=== PATIENT | male | born 1955 | race African-American/Black ===

== ENCOUNTER → 2018-03-04 | Outpatient (CLI) | payer BC, OTHER ==
--- NOTE | 2018-03-04 13:10 | XR ---
EXAM TYPE: LUMBAR SPINE X RAY SERIES COMPARISON: NONE HISTORY: Low back pain TECHNIQUE: 4 views are submitted. FINDINGS: Alignment is anatomic. The pedicles are intact. The transverse processes are intact. There is no s pondylolysis or spondylolisthesis. Diffuse osteopenia and hypertrophic and degenerative change of th e spine with the most marked findings at L4-5 and L5-S1. Facet arthropathy noted. Sclerotic density o verlying the iliac bone may represent a bone island. There is diffuse osteopenia. IMPRESSION: 1. Multilevel degenerative disc disease with most marked findings at L4-L5 and L5-S1 with facet arthr opathy.
== END | disposition home or self-care (01) ==
LOC: RADXRMAIN 12:21
PROVIDERS: ATTEND Internal Medicine
DX: M51.36 Other intervertebral disc degeneration, lumbar region (principal); M46.96 Unspecified inflammatory spondylopathy, lumbar region
CPT/HCPCS: 72110

== ENCOUNTER → 2018-03-20 | Outpatient (CLI) | payer BC ==
--- NOTE | 2018-03-20 09:24 | MR ---
EXAMINATION TYPE: MR knee LT wo con DATE OF EXAM: 03/20/2018 COMPARISON: Plain film 02/27/2018 from outside institution. HISTORY: Pain in left knee TECHNIQUE: Multiplanar, multisequence imaging of the left knee is performed without IV contrast. FINDINGS: MEDIAL MENISCUS: Posterior horn the medial meniscus shows some linear increased signal that extends t o the articular surface seen on sagittal image 23. Anterior horn intact. LATERAL MENISCUS: There is some increased signal in the posterior horn of the lateral meniscus withou t clear communication with the articular surface. CRUCIATE LIGAMENTS: The anterior and posterior cruciate ligaments are intact and unremarkable. COLLATERAL LIGAMENTS: The medial collateral ligament and lateral collateral ligament complex are inta ct and unremarkable. EXTENSOR MECHANISM: Visualized quadriceps and patellar tendons are intact. EFFUSION: No significant suprapatellar joint effusion. POPLITEAL CYST: No popliteal/de jesus cyst. TRICOMPARTMENT SPACES: Loss of joint space present in the medial compartment CARTILAGE: Grade 3 to grade IV chondromalacia present at the posterior patella, medial femoral condyl e BONE MARROW SIGNAL: Some reactive marrow edema suspected in the medial femoral condyle. OTHER: No additional significant abnormality is appreciated. IMPRESSION: Osteoarthritis. Findings compatible with tear of the posterior horn of the medial meniscus.
== END | disposition home or self-care (01) ==
LOC: RADMRIMAIN 08:05
PROVIDERS: ATTEND Orthopaedic Surgery
DX: M17.12 Unilateral primary osteoarthritis, left knee (principal)

== ENCOUNTER 2019-01-07 08:09 | Day surgery (SDC) | payer BC ==
[2019-01-06 11:05] VITALS: BMI 31.3
[~2019-01-07 08:09] MED LIST: DEXAMETHASONE SOD PHOSPHATE 10 MG/ML 1 ML VIAL IV ONE; HEPARIN SODIUM,PORCINE 5,000 UNIT/ML 1 ML VIAL SQ ONE; LACTATED RINGERS 1,000 ML IV SCH; LIDOCAINE 1% 20 ML VIAL (10MG/ML) FOR IV START INTRADERMA PRN; ONDANSETRON 4 MG/2 ML VIAL IVP PRN; SCOPOLAMINE 1.5MG/72HR PATCH TRANSDERM ONE; ceFAZolin IN SWFI 2 GM/20 ML SYRINGE IVP ONE
[2019-01-07 09:17] LABS: Basophils % (A) 1 %; Eosinophils # (A) 0.1 k/uL (0-0.7); Eosinophils % (A) 3 %; HCT 47.6 % (39.0-53.0); HGB 15.5 gm/dL (13.0-17.5); Lymphocytes # (A) 1.3 k/uL (1.0-4.8); Lymphocytes % (A) 30 %; MCH 29.5 pg (25.0-35.0); MCHC 32.6 g/dL (31.0-37.0); MCV 90.4 fL (80.0-100.0); Mean Platelet Volume 8.4; Monocytes # (A) 0.3 k/uL (0-1.0); Monocytes % (A) 7 %; Neutrophils # (A) 2.5 k/uL (1.3-7.7); Neutrophils % (A) 57 %; Platelet Count 234 k/uL (150-450); RBC 5.26 m/uL (4.30-5.90); RDW 14.2 % (11.5-15.5); WBC 4.3 k/uL (3.8-10.6)
[2019-01-07] MEDS ORDERED: BUPIVACAIN-EPI 0.5%-1:200,000 30 ML VIAL SQ ONE ×4 (09:53→11:13)
[2019-01-07] MEDS ORDERED: MIDAZOLAM 2 MG/2 ML VIAL ONE (10:40)
[2019-01-07] MEDS ORDERED: KETOROLAC 30 MG/ML 1 ML VIAL ONE (10:40)
[2019-01-07] MEDS ORDERED: PROPOFOL 10 MG/ML 20 ML VIAL IV ONE (10:40)
[2019-01-07] MEDS ORDERED: ROCURONIUM BROMIDE 10 MG/ML 10 ML VIAL IV ONE (10:40)
[2019-01-07] MEDS ORDERED: GLYCOPYRROLATE 0.2 MG/ML 2 ML VIAL ONE (10:40)
[2019-01-07] MEDS ORDERED: fentaNYL (PF) 50 MCG/ML 2 ML AMP ONE (10:40)
[2019-01-07] MEDS ORDERED: SUCCINYLCHOLINE CHLORIDE 100 MG/5 ML SYR IV ONE (10:40)
[2019-01-07] MEDS ORDERED: NEOSTIGMINE 1 MG/ML 10 ML VIAL ONE (10:40)
[2019-01-07] MEDS ORDERED: LIDOCAINE 1% INJ 10MG/ML (20 ML MDV) ONE (10:40)
[2019-01-07] MEDS ORDERED: HYDROcodone/APAP 5-325MG 1 EACH TAB PO PRN (12:18)
[2019-01-07] MEDS ORDERED: NALOXONE 0.4 MG/ML 1 ML VIAL IV PRN (12:18)
[2019-01-07 12:26] VITALS: TEMP 97.9
--- NOTE | 2019-01-07 12:32 | P.OP ---
Date of Procedure: 01/07/19 Procedure(s) Performed: PREOPERATIVE DIAGNOSIS: Left inguinal hernia POSTOPERATIVE DIAGNOSIS: Same PROCEDURE: Laparoscopic repair left inguinal hernia with the da Liliane robot assistance with mesh SURGEON: Roberto EBL: Minimal ANESTHESIA: General COMPLICATIONS: None OPERATIVE PROCEDURE: Patient was placed in the operating table in the supine position. The patient was placed under general anesthesia. The abdomen was prepped and draped in usual sterile fashion. A small curvilinear supraumbilical incision was made. The fascia was retracted anteriorly with Nitin forceps. The Veress needle was inserted. The saline drop test was normal. Insufflation took place to 15 mmHg. A 5 mm trocar was placed into the peritoneal cavity. This was later switched to a 12 mm trocar. 2 additional 8 mm trochars were placed in the right upper quadrant and left upper quadrant under visualization. The robotic arms were then brought in and docked into place. The fenestrated bipolar was used in the left arm and the laparoscopic padmini was utilized in the right arm. A 30 12 mm scope was used in the up position. The peritoneal cavity was inspected. Patient had evidence of a previous right inguinal hernia repair. I could see a Ethibond stitch beneath the peritoneum on the right hand side with no evidence of hernia recurrence. On the left side the patient had a moderate sized indirect inguinal hernia containing the sigmoid colon. The sigmoid colon thankfully was not adherent to the peritoneum or hernia sac and was able to be reduced back into the peritoneal cavity without difficulty. The peritoneum was incised in a horizontal fashion cephalad to the internal inguinal ring. Following that careful dissection of the preperitoneal space took place. This took place using both electrocautery, sharp dissection but primarily blunt dissection. Visualization of the pubic tubercle and Bradley's ligament took place medially. Full dissection took place laterally as well. The hernia sac was fully dissected. Once we had adequate space the 15 x 10 progrip mesh was advanced into the preperitoneal space and flattened out appropriately to cover all potential hernia sites. No sutures were used. The peritoneal defect was then closed using a locking 2-0 VLok suture. The pneumoperitoneum was then ev acuated. The fascia at the 12 mm site was closed using the Kavon Mahan technique and an 0 Vicryl stitch. The skin of all 3 sites was closed using a 4- 0 Monocryl stitch. Skin glue was then applied. DISPOSITION: Stable to recovery room
[2019-01-07] MEDS: HYDROmorphone 0.5 MG/0.5 ML SYRINGE IVP PRN ×2 (13:14→13:28)
[2019-01-07 14:39] VITALS: BP 106/69; PULSE 84; RESP 18
== END 2019-01-07 15:34 | disposition home or self-care (01) ==
LOC: OR 08:09
PROVIDERS: ATTEND Surgery
DX: K40.30 Unilateral inguinal hernia, with obstruction, without gangrene, not specified as recurrent (principal); K21.9 Gastro-esophageal reflux disease without esophagitis; M54.9 Dorsalgia, unspecified; Z79.1 Long term (current) use of non-steroidal anti-inflammatories (NSAID); Z79.899 Other long term (current) drug therapy
CPT/HCPCS: 49650; 85025; S2900

== ENCOUNTER → 2019-02-17 | Outpatient (CLI) | payer BC ==
--- NOTE | 2019-02-17 10:43 | US ---
EXAMINATION TYPE: US venous doppler duplex LE LT DATE OF EXAM: 02/17/2019 10:35 AM COMPARISON: NONE CLINICAL HISTORY: M79.662 PAIN IN LT LOWER LIMB. Pain and swelling. SIDE PERFORMED: Left TECHNIQUE: The lower extremity deep venous system is examined utilizing real time linear array sonog ronel with graded compression, doppler sonography and color-flow sonography. VESSELS IMAGED: External Iliac Vein (EIV) Common Femoral Vein Deep Femoral Vein Greater Saphenous Vein * Femoral Vein Popliteal Vein Small Saphenous Vein * Proximal Calf Veins (* superficial vessels) Preliminary results given to Alessandra immediately following exam. Left Leg: Negative for DVT Grayscale, color doppler, spectral doppler imaging performed of the deep veins of the left lower extr emity. There is normal flow, compressibility, vascular waveforms. IMPRESSION: No ultrasound evidence for acute DVT in the left lower extremity.
== END | disposition home or self-care (01) ==
LOC: RADUSWWP 10:10
PROVIDERS: ATTEND Internal Medicine
DX: M79.662 Pain in left lower leg (principal)

== ENCOUNTER 2020-01-22 17:56 | Observation (INO) | payer OTHER, BC ==
[2020-01-22] MEDS ORDERED: SODIUM CHLORIDE 0.9% 500 ML 500 ML IV STA (18:09)
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
[2020-01-22 18:26] LABS: Basophils % (A) 1 %; Eosinophils # (A) 0.1 k/uL (0-0.7); Eosinophils % (A) 3 %; HCT 38.6 % (39.0-53.0); HGB 7.9 gm/dL (13.0-17.5); Hypochromasia Marked; Lymphocytes # (A) 0.8 k/uL (1.0-4.8); Lymphocytes % (A) 22 %; MCH 16.8 pg (25.0-35.0); MCHC 20.5 g/dL (31.0-37.0); MCV 81.8 fL (80.0-100.0); Monocytes # (A) 0.2 k/uL (0-1.0); Monocytes % (A) 5 %; Neutrophils # (A) 2.5 k/uL (1.3-7.7); Neutrophils % (A) 67 %; Platelet Count 421 k/uL (150-450); RBC 4.72 m/uL (4.30-5.90); RDW 15.1 % (11.5-15.5); WBC 3.8 k/uL (3.8-10.6)
[2020-01-22 18:34] LABS: Partial Thromboplastin Time 23.3 sec (22.0-30.0); Prothrombin Time 10.1 sec (9.0-12.0)
[2020-01-22 18:41] LABS: ALT 20 U/L (4-49); AST 27 U/L (17-59); African American GFR (CKD) >90 (>60 ml/min/1.73 sqM); Albumin 4.4 g/dL (3.5-5.0); Alkaline Phosphatase 79 U/L (38-126); Anion Gap 12 mmol/L; Blood Urea Nitrogen 14 mg/dL (9-20); Calcium 9.7 mg/dL (8.4-10.2); Carbon Dioxide 24 mmol/L (22-30); Chloride 101 mmol/L (98-107); Glucose 121 mg/dL (74-99); Magnesium 1.9 mg/dL (1.6-2.3); Non-African American GFR(CKD) >90 (>60 ml/min/1.73 sqM); Potassium 4.2 mmol/L (3.5-5.1); Sodium 137 mmol/L (137-145); Total Bilirubin 0.2 mg/dL (0.2-1.3); Total Protein 8.1 g/dL (6.3-8.2)
--- NOTE | 2020-01-22 18:56 | XR ---
EXAMINATION TYPE: XR chest 1V portable DATE OF EXAM: 01/22/2020 COMPARISON: 02/14/2015 HISTORY: Syncope TECHNIQUE: Single frontal view of the chest is obtained. FINDINGS: Lingular linear scarring and/or atelectasis is seen. There is no focal air space opacity, pleural effusion, or pneumothorax seen. The cardiac silhouette size is within normal limits. Degener ative changes of the spine are partially visualized. IMPRESSION: Lingular scarring and/or atelectasis. Otherwise no acute cardiopulmonary process.
[2020-01-22] MEDS ORDERED: NALOXONE 0.4 MG/ML 1 ML VIAL IV PRN (22:20)
[2020-01-22] MEDS: SODIUM CHLORIDE 0.9% 1,000 ML IV SCH (23:52)
[2020-01-23] MEDS ORDERED: PROCHLORPERAZINE 5 MG TAB PO PRN (00:57)
[2020-01-23] MEDS ORDERED: oxyCODONE-APAP 10-325MG 1 EACH TAB PO PRN (00:57)
[2020-01-23] MEDS ORDERED: MECLIZINE 25 MG TAB PO PRN (00:57)
[2020-01-23 06:05] LABS: Basophils % (A) 0 %; Eosinophils # (A) 0.1 k/uL (0-0.7); Eosinophils % (A) 3 %; HCT 35.6 % (39.0-53.0); HGB 10.5 gm/dL (13.0-17.5); Hypochromasia Marked; Lymphocytes # (A) 1.1 k/uL (1.0-4.8); Lymphocytes % (A) 27 %; MCH 24.2 pg (25.0-35.0); MCHC 29.6 g/dL (31.0-37.0); MCV 81.8 fL (80.0-100.0); Monocytes # (A) 0.3 k/uL (0-1.0); Monocytes % (A) 8 %; Neutrophils # (A) 2.3 k/uL (1.3-7.7); Neutrophils % (A) 59 %; Platelet Count 411 k/uL (150-450); RBC 4.35 m/uL (4.30-5.90); RDW 15.2 % (11.5-15.5)
[2020-01-23] MEDS: PANTOPRAZOLE 40 MG TABLET PO SCH (07:23)
[2020-01-23] MEDS: ASCORBIC ACID 500 MG TAB PO SCH (07:23)
[2020-01-23] MEDS: DOCUSATE 100 MG CAP PO SCH ×2 (07:23→23:28)
[2020-01-23] MEDS: FUROSEMIDE 20 MG TAB PO SCH (07:23)
[2020-01-23] MEDS: POTASSIUM CHLORIDE ER 20 MEQ TAB.ER PO SCH (07:23)
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
[2020-01-23] MEDS: SODIUM CHLORIDE 0.9% 1,000 ML IV SCH ×2 (12:44→23:28)
--- NOTE | 2020-01-23 12:52 | US ---
EXAMINATION TYPE: US carotid duplex BILAT DATE OF EXAM: 01/23/2020 COMPARISON: NONE CLINICAL HISTORY: pre syncope. Difficult exam as patient is in a neck brace and cannot turn his head to the side EXAM MEASUREMENTS: RIGHT: Peak Systolic Velocity (PSV) cm/sec ----- Right CCA: 88.1 ----- Right ICA: 73.5 ----- Right ECA: 76.4 ICA/CCA ratio: 0.8 RIGHT: End Diastole cm/sec ----- Right CCA: 21.2 ----- Right ICA: 29.9 ----- Right ECA: 22.7 LEFT: Peak Systolic Velocity (PSV) cm/sec ----- Left CCA: 73.5 ----- Left ICA: 77.5 ----- Left ECA: 76.2 ICA/CCA ratio: 1.1 LEFT: End Diastole cm/sec ----- Left CCA: 24.1 ----- Left ICA: 29.6 ----- Left ECA: 12.8 VERTEBRALS (direction of flow): Right Vertebral: Antegrade Left Vertebral: Antegrade Rhythm: Normal Grayscale, color Doppler, spectral Doppler imaging performed of the carotid arteries. Waveform analys is does not show significant stenosis of the internal carotid arteries. Minimal plaque visualized, no elevated velocities, no significant stenosis IMPRESSION: No hemodynamic significant stenosis of the proximal internal carotid arteries by Doppler criteria, an indirect measurement of carotid stenosis.
[2020-01-23 17:25] LABS: % Iron Saturation 4.62 (15.00-50.00)
[2020-01-23 17:30] LABS: Folate, Serum 9.4 ng/mL
[2020-01-23 17:59] LABS: Basophils % (A) 1 %; Eosinophils # (A) 0.1 k/uL (0-0.7); Eosinophils % (A) 3 %; HCT 37.8 % (39.0-53.0); HGB 11.3 gm/dL (13.0-17.5); Hypochromasia Marked; Lymphocytes # (A) 1.1 k/uL (1.0-4.8); Lymphocytes % (A) 30 %; MCH 24.8 pg (25.0-35.0); MCHC 29.9 g/dL (31.0-37.0); Mean Platelet Volume 8.2; Monocytes # (A) 0.3 k/uL (0-1.0); Monocytes % (A) 7 %; Neutrophils % (A) 55 %; Platelet Count 414 k/uL (150-450); RBC 4.55 m/uL (4.30-5.90); RDW 15.3 % (11.5-15.5); WBC 3.7 k/uL (3.8-10.6)
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
[2020-01-24 08:03] VITALS: BP 125/68; PULSE 77; RESP 16; TEMP 97.7
[2020-01-24] MEDS: PANTOPRAZOLE 40 MG TABLET PO SCH (08:04)
[2020-01-24] MEDS: ASCORBIC ACID 500 MG TAB PO SCH (08:04)
[2020-01-24] MEDS: POTASSIUM CHLORIDE ER 20 MEQ TAB.ER PO SCH (08:04)
[2020-01-24] MEDS: DOCUSATE 100 MG CAP PO SCH (08:04)
[2020-01-24] MEDS: FUROSEMIDE 20 MG TAB PO SCH (08:04)
[2020-01-24 08:34] LABS: Basophils % (A) 1 %; Eosinophils # (A) 0.2 k/uL (0-0.7); Eosinophils % (A) 5 %; HCT 35.8 % (39.0-53.0); Hypochromasia Marked; Lymphocytes # (A) 1.1 k/uL (1.0-4.8); Lymphocytes % (A) 33 %; MCH 25.8 pg (25.0-35.0); MCHC 30.7 g/dL (31.0-37.0); MCV 84.3 fL (80.0-100.0); Mean Platelet Volume 8.5; Monocytes # (A) 0.3 k/uL (0-1.0); Monocytes % (A) 9 %; Neutrophils # (A) 1.6 k/uL (1.3-7.7); Neutrophils % (A) 49 %; Platelet Count 370 k/uL (150-450); RBC 4.24 m/uL (4.30-5.90); WBC 3.3 k/uL (3.8-10.6)
[2020-01-24 08:46] LABS: ALT 19 U/L (4-49); AST 22 U/L (17-59); African American GFR (CKD) >90 (>60 ml/min/1.73 sqM); Albumin 3.4 g/dL (3.5-5.0); Alkaline Phosphatase 61 U/L (38-126); Anion Gap 7 mmol/L; Blood Urea Nitrogen 9 mg/dL (9-20); Calcium 9.1 mg/dL (8.4-10.2); Carbon Dioxide 27 mmol/L (22-30); Chloride 105 mmol/L (98-107); Glucose 93 mg/dL (74-99); Non-African American GFR(CKD) >90 (>60 ml/min/1.73 sqM); Potassium 4.5 mmol/L (3.5-5.1); Sodium 139 mmol/L (137-145); Total Bilirubin 0.4 mg/dL (0.2-1.3)
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
--- NOTE | 2020-01-24 14:00 | ECHOF ---
Referral Reason:pre syncope MEASUREMENTS -------- HEIGHT: 175.3 cm WEIGHT: 81.6 kg BP: 124/74 IVSd: 1.3 cm (0.6 - 1.1) LVIDd: 4.0 cm (3.9 - 5.3) LVPWd: 1.3 cm (0.6 - 1.1) IVSs: 1.8 cm LVIDs: 2.4 cm LVPWs: 1.7 cm RVIDd: 4.4 cm (< 3.3) LAESV Index (A-L): 19.35 ml/m Ao Diam: 3.5 cm (2.0 - 3.7) AV Cusp: 1.9 cm (1.5 - 2.6) EPSS: 0.6 cm MV E Benoit: 0.57 m/s MV DecT: 227 ms MV A Benoit: 0.70 m/s MV E/A Ratio: 0.82 AR PHT: 856 ms RAP: 5.00 mmHg RVSP: 22.12 mmHg MV EF SLOPE: 92.59 mm/s (70 - 150) MV EXCURSION: 24.30 mm (> 18.000) FINDINGS -------- Sinus rhythm. This was a technically adequate study. The left ventricular size is normal. There is mild concentric left ventricular hypertrophy. Overa ll left ventricular systolic function is normal with, an EF between 55 - 60 %. The diastolic fillin g pattern is normal for the age of the patient 7.90. The right ventricle is moderately enlarged. Normal LA size by volume 22+/-6 ml/m2. The right atrial size is normal. Interatrial and interventricular septum intact. The aortic valve is trileaflet and appears structurally normal. There is mild aortic valve sclerosi s. Trace amount of aortic regurgitation. There is no evidence of aortic stenosis. There is trace mitral regurgitation. Mild tricuspid regurgitation present. There is no evidence of pulmonary hypertension. The right v entricular systolic pressure, as measured by Doppler, is 22.12mmHg. There is no pulmonic regurgitation present. The aortic root size is normal. Normal inferior vena cava with normal inspiratory collapse consistent with estimated right atrial pre ssure of 5 mmHg. There is no pericardial effusion. CONCLUSIONS -------- 1. Sinus rhythm. 2. This was a technically adequate study. 3. The left ventricular size is normal. 4. There is mild concentric left ventricular hypertrophy. 5. Overall left ventricular systolic function is normal with, an EF between 55 - 60 %. 6. The diastolic filling pattern is normal for the age of the patient 7.90 7. The right ventricle is moderately enlarged. 8. Normal LA size by volume 22+/-6 ml/m2. 9. The right atrial size is normal. 10. Interatrial and interventricular septum intact. 11. The aortic valve is trileaflet and appears structurally normal. 12. There is mild aortic valve sclerosis. 13. Trace amount of aortic regurgitation. 14. There is no evidence of aortic stenosis. 15. There is trace mitral regurgitation. 16. Mild tricuspid regurgitation present. 17. There is no evidence of pulmonary hypertension. 18. The right ventricular systolic pressure, as measured by Doppler, is 22.12mmHg. 19. There is no pulmonic regurgitation present. 20. The aortic root size is normal. 21. Normal inferior vena cava with normal inspiratory collapse consistent with estimated right atrial pressure of 5 mmHg. 22. There is no pericardial effusion. CONCERT MANAGER: Ofe Ceron RDCS
== END 2020-01-24 14:08 | disposition home or self-care (01) ==
LOC: EC 17:56 → 4SSUR 20:14
PROVIDERS: ADMIT Internal Medicine; ATTEND Internal Medicine
DX: R55 Syncope and collapse (principal); R42 Dizziness and giddiness; R61 Generalized hyperhidrosis; Z86.19 Personal history of other infectious and parasitic diseases; D64.9 Anemia, unspecified; Z79.891 Long term (current) use of opiate analgesic; Z79.899 Other long term (current) drug therapy; Z80.1 Family history of malignant neoplasm of trachea, bronchus and lung; S12.9XXD Fracture of neck, unspecified, subsequent encounter; S32.009D Unspecified fracture of unspecified lumbar vertebra, subsequent encounter for fracture with routine healing; V48.0XXD Car driver injured in noncollision transport accident in nontraffic accident, subsequent encounter
CPT/HCPCS: 96361 ×4; 96360; 99285; 36415; 93005 ×2; 93306; 86900; 86901; 80053 ×2; 82607; 82746; 83540; 83550; 83735; 84484 ×2; 85025 ×3; 85610; 85730; 86850; 82272; 71045; 93880; G0378 ×3

== ENCOUNTER → 2020-04-07 | Outpatient (CLI) | payer OTHER ==
--- NOTE | 2020-04-07 14:30 | XR ---
EXAMINATION TYPE: XR chest 2V DATE OF EXAM: 04/07/2020 CLINICAL HISTORY: Cough TECHNIQUE: Frontal and lateral views of the chest are obtained. COMPARISON: 01/22/2020 chest radiograph FINDINGS: The cardiomediastinal silhouette is within normal limits for size. Pulmonary vasculature i s normal. Atelectasis of the right lung base. There is no focal air space opacity, pleural effusion, or pneumothorax seen. Age-indeterminate mild vertebral body compression deformity of the mid to upper thoracic spine. IMPRESSION: 1. Atelectasis at the right lung base. No focal airspace opacity. 2. Age-indeterminate mild vertebral body compression deformity of the mid to upper thoracic spine.
== END | disposition home or self-care (01) ==
LOC: RADXRMAIN 14:06
PROVIDERS: ATTEND Internal Medicine
DX: J98.11 Atelectasis (principal)
CPT/HCPCS: 71046

== ENCOUNTER → 2020-05-05 | Outpatient (CLI) | payer BC, OTHER ==
[2020-05-05 12:05] LABS: African American GFR (CKD) >90 (>60 ml/min/1.73 sqM); Blood Urea Nitrogen 12 mg/dL (9-20); Non-African American GFR(CKD) 83 (>60 ml/min/1.73 sqM)
--- NOTE | 2020-05-05 12:52 | CT ---
EXAMINATION TYPE: CT soft tissue neck w con DATE OF EXAM: 05/05/2020 COMPARISON: None HISTORY: Dysphagia. CT DLP: 800 mGycm CONTRAST: CT scan of the neck is performed with IV Contrast, patient injected with 100 mL of Isovue M300. Contrast enhanced CT of the neck was performed from the skull base through the lung apices. AIRWAY: The supraglottic, glottic, and subglottic portions of the airway appear patent and free of mass. SALIVARY GLANDS: The submandibular and parotid glands are free of mass or inflammatory process. THYROID GLAND: No nodules or masses seen. LYMPH NODES: No adenopathy seen greater than 1cm. LUNG APICES: No nodule or mass is seen. OTHER: Vascular structures are patent. No significant degenerative change of the cervical spine. N o abscess seen. Small polyp is noted in the right maxillary sinus. IMPRESSION: No distinct abnormality to account for the patient's symptoms of dysphagia. Consider direct visualiza tion or esophagram for further evaluation.
--- NOTE | 2020-05-05 14:17 | FL ---
Modified barium swallow. HISTORY: Dysphagia. Modified barium swallow was performed with the department of speech pathology. The patient was prese nted with various consistencies of barium. There is no evidence for aspiration. Transient penetration noted with liquid barium with a straw. Fu ll report is to follow from the department of speech pathology. Impression: Mild transient penetration.
== END | disposition home or self-care (01) ==
LOC: RADFLMAIN 11:00
PROVIDERS: ATTEND Otolaryngology Plastic Surgery within the Head & Neck
DX: F45.8 Other somatoform disorders (principal); R13.10 Dysphagia, unspecified; Z01.812 Encounter for preprocedural laboratory examination
CPT/HCPCS: 92611; 82565; 84520; 74230; 70491; 36415; Q9967

== ENCOUNTER → 2020-05-06 | Outpatient (CLI) | payer OTHER ==
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
== END | disposition home or self-care (01) ==
LOC: RADFLMAIN 11:27
PROVIDERS: ATTEND Otolaryngology Plastic Surgery within the Head & Neck
DX: K44.9 Diaphragmatic hernia without obstruction or gangrene (principal); K21.9 Gastro-esophageal reflux disease without esophagitis
CPT/HCPCS: 74220

== ENCOUNTER 2022-01-11 19:35 | Emergency (ER) | payer BC, OTHER ==
[2022-01-11 19:54] VITALS: TEMP 98.2
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
--- NOTE | 2022-01-11 21:07 | XR ---
EXAMINATION TYPE: XR shoulder complete LT DATE OF EXAM: 01/11/2022 8:52 PM INDICATION: Patient age:Male; 66 years old; Reason for study: fall; COMPARISON: None TECHNIQUE: The left shoulder was examined in AP, internally rotated and axillary projections. FINDINGS: No evidence of acute osseous pathology, joint dislocation, or soft tissue swelling. The remaining por tions of the visualized chest are unremarkable. Mild osteophytes of the distal clavicle. IMPRESSION: No acute osseous pathology.
--- NOTE | 2022-01-11 21:07 | XR ---
EXAMINATION TYPE: XR lumbar spine 2 or 3V DATE OF EXAM: 01/11/2022 8:52 PM INDICATION: Patient age:Male; 66 years old; Reason for study: fall; COMPARISON: None TECHNIQUE: The lumbar spine was examined in 2 views. FINDINGS: No evidence of any acute osseous pathology. Multiple level osteophyte formation endplate s purring. The alignment is straightened. There is patent neural foramina. No evidence of loss of verte bral body height is seen. IMPRESSION: No acute process.
[2022-01-11 23:07] VITALS: BP 141/74; PULSE 104; RESP 14
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
== END 2022-01-11 23:21 | disposition home or self-care (01) ==
LOC: EC 19:35
DX: S01.01XA Laceration without foreign body of scalp, initial encounter (principal); S50.02XA Contusion of left elbow, initial encounter; M19.90 Unspecified osteoarthritis, unspecified site; W01.0XXA Fall on same level from slipping, tripping and stumbling without subsequent striking against object, initial encounter; Y92.009 Unspecified place in unspecified non-institutional (private) residence as the place of occurrence of the external cause
CPT/HCPCS: 12002; 70450; 72100; 72125; 99284

== ENCOUNTER → 2022-01-17 | Outpatient (CLI) | payer BC ==
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
== END | disposition home or self-care (01) ==
LOC: RADXRMAIN 13:21
PROVIDERS: ATTEND Internal Medicine
DX: R07.9 Chest pain, unspecified (principal); W19.XXXA Unspecified fall, initial encounter
CPT/HCPCS: 71046

== ENCOUNTER 2023-08-29 09:06 | Day surgery (SDC) | payer BC ==
[~2023-08-29 09:06] MED LIST changes: +ALPRAZolam 0.25 MG TAB PO PRN; +ALPRAZolam 0.5 MG TAB PO PRN; +ASPIRIN 325 MG TAB PO STA; +ATORVASTATIN 80 MG TAB PO STA; -DEXAMETHASONE SOD PHOSPHATE 10 MG/ML 1 ML VIAL IV ONE; -HEPARIN SODIUM,PORCINE 5,000 UNIT/ML 1 ML VIAL SQ ONE; -LACTATED RINGERS 1,000 ML IV SCH; -LIDOCAINE 1% 20 ML VIAL (10MG/ML) FOR IV START INTRADERMA PRN; +NITROGLYCERIN SL TABS 0.4 MG TAB SUBLINGUAL PRN; -ONDANSETRON 4 MG/2 ML VIAL IVP PRN; -SCOPOLAMINE 1.5MG/72HR PATCH TRANSDERM ONE; +SODIUM CHLORIDE 0.9% 1,000 ML in EMPTY BAG 1 BAG IV SCH; -ceFAZolin IN SWFI 2 GM/20 ML SYRINGE IVP ONE
[2023-08-29] MEDS ORDERED: SODIUM CHLORIDE 0.9% 1,000 ML IV ONE (09:23)
[2023-08-29] MEDS ORDERED: ASPIRIN 325 MG TAB PO ONE (09:27)
[2023-08-29 09:48] VITALS: RESP 16; TEMP 97.8
[2023-08-29] MEDS ORDERED: LIDOCAINE 1% INJ 10MG/ML (5 ML VIAL-PF) SQ ONE (10:00)
[2023-08-29] MEDS ORDERED: fentaNYL (PF) 50 MCG/1 ML VIAL IVP ONE (10:01)
[2023-08-29] MEDS ORDERED: MIDAZOLAM 2 MG/2 ML VIAL IVP ONE (10:01)
[2023-08-29] MEDS ORDERED: VERAPAMIL SYRINGE (5 MG/10 ML) INTRAARTER ONE (10:10)
[2023-08-29] MEDS ORDERED: HEPARIN SODIUM 1,000 UN/ML (10ML VL) IV ONE (10:10)
[2023-08-29] MEDS ORDERED: IOPAMIDOL-370 100ML BTL INJ ONE (10:21)
[2023-08-29] MEDS ORDERED: RX INFO: IV CONTRAST WAS GIVEN 1 EACH MISC MISCELLANE PRN (10:29)
[2023-08-29] MEDS ORDERED: SODIUM CHLORIDE 0.9% 1,000 ML IV SCH (10:30)
--- NOTE | 2023-08-29 11:55 | CC ---
CARDIAC CATHETERIZATION REPORT INDICATIONS: Chest pain with abnormal stress test. PROCEDURE NOTE: After obtaining informed consent, left heart catheterization and coronary angiogram were performed via the right radial artery using standard Flor catheters. The patient tolerated the procedure well without any obvious immediate complications. The patient received moderate conscious sedation. Total sedation time was 25 minutes. The patient was given verapamil and heparin per protocol. Right radial artery access was obtained using Seldinger technique. A 6-Cameroonian sheath was placed. Catheters and wires were floated into the ascending aorta under fluoroscopic guidance. A TR band was used for hemostasis. FINDINGS: 1. Hemodynamics: Left ventricular end-diastolic pressure is 18 mm, there is no significant gradient across the aortic valve. 2. Left Ventriculogram: Left ventriculogram is not performed. 3. Angiographic Data: a.Right coronary artery: Right coronary artery is a nondominant vessel, free of stenosis. Left main coronary artery is a normal-sized vessel and is free of disease, divides into left anterior descending coronary artery and circumflex coronary artery. LAD and its branches, circumflex coronary artery and its branches are free of significant stenosis. CONCLUSIONS: 1. Normal coronary arteries. 2. False-positive stress Cardiolite study. PLAN: Patient's management is going to be in the form of risk factor modification. MMODL / IJN: [id number] /
[2023-08-29 14:38] VITALS: BP 123/64; PULSE 56
== END 2023-08-29 14:20 | disposition home or self-care (01) ==
LOC: CATHCVL 09:06
PROVIDERS: ATTEND Internal Medicine Cardiovascular Disease
DX: I25.10 Atherosclerotic heart disease of native coronary artery without angina pectoris (principal); Z79.82 Long term (current) use of aspirin; Z79.899 Other long term (current) drug therapy; Z85.9 Personal history of malignant neoplasm, unspecified; Z82.49 Family history of ischemic heart disease and other diseases of the circulatory system
CPT/HCPCS: 93458; C1769 ×2; C1894; J2250; J2001; J1644; Q9967; J3010

== ENCOUNTER → 2024-01-07 | Outpatient (CLI) | payer OTHER, BC ==
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
== END | disposition home or self-care (01) ==
LOC: RADXRMAIN 11:18
PROVIDERS: ATTEND Internal Medicine
DX: M25.572 Pain in left ankle and joints of left foot (principal)